=== PATIENT | female | born 1935 | race Caucasian/White ===

== ENCOUNTER → 2016-08-15 | Outpatient (CLI) | payer MEDICARE, OTHER | END | disposition home or self-care (01) | LOC: RAD.S 08:40 | DX: R10.9 Unspecified abdominal pain (principal); K44.9 Diaphragmatic hernia without obstruction or gangrene; K21.9 Gastro-esophageal reflux disease without esophagitis ==

== ENCOUNTER → 2016-08-23 | Outpatient (CLI) | payer MEDICARE, OTHER | END | disposition home or self-care (01) | LOC: RAD.S 12:36 | DX: R10.9 Unspecified abdominal pain (principal); K44.9 Diaphragmatic hernia without obstruction or gangrene; R93.2 Abnormal findings on diagnostic imaging of liver and biliary tract; K57.90 Diverticulosis of intestine, part unspecified, without perforation or abscess without bleeding ==

== ENCOUNTER 2016-11-10 07:37 | Day surgery (SDC) | payer MEDICARE, OTHER ==
[~2016-11-10] VITALS: Ht 162.6 cm; Wt 86.0 kg
--- NOTE | 2016-12-06 07:03 | OR ---
ADMIT: 11/10/2016 RM/LOC: [facility] MR#: [id number] [id number] [place] [address] [place] [address] Operative/Delivery Room Report SEX: F AGE: 81 : 1935 SURGERY DATE: 11/10/2016 SURGEON: Ganga Garcia MD POSTOPERATIVE DIAGNOSES: Epigastric pain and reflux as well as thickening of distal small bowel on CT scan. POSTOPERATIVE DIAGNOSES: 1. Small hiatal hernia approximately 1 cm length with mild reflux changes. Otherwise, normal upper endoscopy. 2. Extensive sigmoid diverticula. 3. Two small hyperplastic appearing polyps within the rectum. PROCEDURE PERFORMED: 1. EGD with biopsies. 2. Colonoscopy and cold biopsy removal polyps at 10 and 5 cm. ANESTHESIA: Sedation. ESTIMATED BLOOD LOSS: None. DESCRIPTION OF PROCEDURE: After appropriate informed consent was obtained, the patient was brought to the endoscopy suite. IV sedation was provided. A well-lubricated endoscope was introduced and passed down the esophagus. The proximal and mid esophagus appeared normal. Distal esophagus showed very mild reflux changes. No evidence of Moran's change. No stricture or narrowing. Just a small hiatal hernia about 1 cm in length. The scope was advanced to the stomach. Gastric mucosa appeared normal throughout. The pylorus intubated. Duodenal bulb, second and third portions of the duodenum appeared normal. I took multiple biopsies of the duodenum. The scope was then pulled back into the stomach, retroflexed revealing just a small sliding type hiatal hernia from below. No proximal gastritis or mass. Several biopsy taken in the antrum. Lastly, biopsies taken in the distal esophagus. The stomach was then deflated and scope was withdrawn. I then proceeded with colonoscopy. Rectal exam revealed some moderate-sized external hemorrhoids. No rectal masses. The scope was introduced, passed through the entire length of colon. She had a moderate prep with just some liquid stool throughout that I was able to irrigate and suctioned out. The ADMIT: 11/10/2016 RM/LOC: [facility] MR#: [id number] [id number] REIJ AGUILARRA Agustin [address] [place] [address] Operative/Delivery Room Report SEX: F AGE: 81 : 1935 scope was easily advanced all way to the cecum. She did have extensive sigmoid diverticula. The ileocecal valve and appendicial orifice appeared normal. The ileocecal valve was intubated and terminal ileum appeared normal. The scope was then slowly and carefully withdrawn, and again the colonic mucosa was inspected on the way out and this all appeared normal. She did have two small hyperplastic appearing polyps within the rectum and these were both removed with cold biopsy forceps. One was at 10 cm, and the second one was a 5 cm. The scope was retroflexed in rectum revealing mild internal hemorrhoids. No rectal masses. The patient tolerated the procedure well and was taken to the recovery room in stable condition. Ganga Garcia MD/ pritesh JOB #: [id number] CC: Ganga Garcia, Attending Physician Jovi Briseno, Family Physician Jovi Briseno MD
== END 2016-11-10 11:00 | disposition home or self-care (01) ==
LOC: SSS 07:37
PROC: 0DB38ZX Excision of Lower Esophagus, Via Natural or Artificial Opening Endoscopic, Diagnostic (ICD-10-PCS; principal; 2016-11-10)
PROC: 0DBP8ZX Excision of Rectum, Via Natural or Artificial Opening Endoscopic, Diagnostic (ICD-10-PCS; principal; 2016-11-10)
PROC: 0DB98ZX Excision of Duodenum, Via Natural or Artificial Opening Endoscopic, Diagnostic (ICD-10-PCS; principal; 2016-11-10)
PROC: 0DB68ZX Excision of Stomach, Via Natural or Artificial Opening Endoscopic, Diagnostic (ICD-10-PCS; principal; 2016-11-10)
DX: K22.8 Other specified diseases of esophagus (principal); K44.9 Diaphragmatic hernia without obstruction or gangrene; K57.30 Diverticulosis of large intestine without perforation or abscess without bleeding; K64.8 Other hemorrhoids; K21.9 Gastro-esophageal reflux disease without esophagitis; K64.4 Residual hemorrhoidal skin tags; I10 Essential (primary) hypertension; E11.9 Type 2 diabetes mellitus without complications; Z98.890 Other specified postprocedural states; Z90.710 Acquired absence of both cervix and uterus; Z79.899 Other long term (current) drug therapy